=== PATIENT | female | born 1965 | race Caucasian/White ===

== ENCOUNTER → 2024-06-10 07:57 | Outpatient (REF) | payer BC, SELFPAY | LOC: WDC 07:57 | PROVIDERS: ATTENDING PHYSICIAN Obstetrics & Gynecology | DX: Z12.31 Encounter for screening mammogram for malignant neoplasm of breast (principal) | CPT/HCPCS: 77063; 77067 ==

== ENCOUNTER → 2024-11-12 11:26 | Outpatient (REF) | payer BC, SELFPAY | LOC: HWEVLT 11:26 | PROVIDERS: ATTENDING PHYSICIAN Radiology Diagnostic Radiology | DX: I83.892 Varicose veins of left lower extremity with other complications (principal) | CPT/HCPCS: 93971 ==

== ENCOUNTER → 2024-12-09 12:56 | Outpatient (REF) | payer BC, SELFPAY | LOC: WDC 12:56 | PROVIDERS: ATTENDING PHYSICIAN Obstetrics & Gynecology | DX: R92.2 Inconclusive mammogram (principal) | CPT/HCPCS: 76641 ==

== ENCOUNTER 2025-03-11 06:25 | Day surgery (SDC) | payer BC, SELFPAY | END 2025-03-11 09:10 | disposition home or self-care (01) | LOC: GI 06:25 | PROVIDERS: ATTENDING PHYSICIAN Student in an Organized Health Care Education/Training Program | DX: Z12.11 Encounter for screening for malignant neoplasm of colon (principal); K63.5 Polyp of colon; K62.1 Rectal polyp; Z86.0100 Personal history of colon polyps, unspecified | CPT/HCPCS: 45385; 45380; 88305 ==

== ENCOUNTER → 2025-03-19 08:30 | Outpatient (REF) | payer BC, SELFPAY | LOC: HWRAD 08:30 | PROVIDERS: ATTENDING PHYSICIAN Family Medicine | DX: Z78.0 Asymptomatic menopausal state (principal) | CPT/HCPCS: 77080 ==

== ENCOUNTER → 2025-05-18 14:06 | Outpatient (REF) | payer BC, SELFPAY | LOC: HWRAD 14:06 | PROVIDERS: ATTENDING PHYSICIAN Family Medicine | DX: M54.9 Dorsalgia, unspecified (principal); R07.89 Other chest pain; R10.9 Unspecified abdominal pain | CPT/HCPCS: 71101 ==

== ENCOUNTER → 2025-06-10 07:01 | Outpatient (REF) | payer BC, SELFPAY | LOC: HWRAD 07:01 | PROVIDERS: ATTENDING PHYSICIAN Family Medicine | DX: M54.9 Dorsalgia, unspecified (principal); R07.89 Other chest pain; R10.9 Unspecified abdominal pain | CPT/HCPCS: 76775 ==

== ENCOUNTER → 2025-06-11 08:14 | Outpatient (REF) | payer BC, SELFPAY | LOC: WDC 08:14 | PROVIDERS: ATTENDING PHYSICIAN Obstetrics & Gynecology | DX: Z12.31 Encounter for screening mammogram for malignant neoplasm of breast (principal) | CPT/HCPCS: 77063; 77067 ==